=== PATIENT | male | born 1970 | race African-American/Black ===

== ENCOUNTER 2017-03-24 14:26 | Emergency (ER) | payer MEDICAID ==
[~2017-03-24] VITALS: Ht 182.9 cm; Wt 111.1 kg
[2017-03-24 14:48] VITALS: BP 141/81
[2017-03-24 15:15] LABS: Basophils # (auto) 0 uL; Basophils % (auto) 0.9 % (0.0-2.0); Eosinophils # (auto) 0.2 uL; Eosinophils % (auto) 3.1 % (0.0-7.0); Hematocrit 39.6 % (41.0-53.0); Lymphocytes # (auto) 1.6 uL; Lymphocytes % (auto) 32.1 % (10.0-50.0); Mean Corpuscular Hemoglobin 28.2 pg (28.0-32.0); Mean Corpuscular Hgb Conc. 32.9 g/dL (32.0-36.0); Mean Corpuscular Volume 85.5 fL (80.0-100.0); Monocytes # (auto) 0.6 uL; Neutrophils # (auto) 2.7 uL; Neutrophils % (auto) 51.9 % (37.0-80.0); Nucleated Red Blood Cells % 0.1 %; Platelet Count (auto) 331 10^3/uL (140-450); Red Blood Cells 4.63 10^6/uL (4.5-5.90); Red Cell Distribution Width 14.8 % (11.8-14.3); White Blood Cell 5.1 10^3/uL (4.4-10.8)
[2017-03-24 15:57] LABS: Potassium 4.3 mmol/L (3.5-5.1)
[2017-03-24 15:58] LABS: BUN/Creatinine Ratio 12.9; Bilirubin, Total 0.2 mg/dL (0.2-1.0); Calcium 8.9 mg/dL (8.5-10.1)
[2017-03-24 15:59] LABS: Albumin 3.5 g/dL (3.4-5.0); Total Protein 8.3 g/dL (6.4-8.2)
== END 2017-03-24 18:30 | disposition home or self-care (01) ==
LOC: ER 14:33
DX: R42 Dizziness and giddiness (principal)
CPT/HCPCS: 36415; 70450; 80053; 82962; 85025